=== PATIENT | female | born 1975 ===

== ENCOUNTER 2024-10-20 11:30 | Day surgery (SDC) | payer OTHER ==
[2024-10-12 09:03] VITALS: BP 154/90
[2024-10-12 09:40] LABS: HEMATOCRIT 36.3 % (36.0-45.00); HEMOGLOBIN 11.9 g/dL (12.0-15.00); MEAN CELL VOLUME 83.2 fL (80.00-100.00); MEAN CORPUSCULAR HEMOGLOBIN 27.3 pg (27.00-32.0); MEAN CORPUSCULAR HGB CONC 32.8 g/dl (32.0-36.0); PLATELET COUNT 255 K/uL (150-450); RED BLOOD COUNT 4.36 M/uL (4.00-6.00); RED CELL DISTRIBUTION WIDTH 13.9 % (11.5-14.5)
[2024-10-12 10:13] LABS: URINE APPEARANCE Clear; URINE BILIRRUBIN Negative (NEGATIVE); URINE BLOOD Large; URINE COLOR Yellow; URINE GLUCOSE Negative (NEGATIVE); URINE KETONE Negative (NEGATIVE); URINE LEUKOCYTE Trace; URINE NITRATE Negative; URINE PROTEIN Negative (NEGATIVE); URINE UROBILINOGEN 0.2 E.U./dl
[2024-10-12 10:16] LABS: INR 0.97; PROTHROMBIN TIME 10.6 SECONDS (9.0-11.5)
[2024-10-12 10:17] LABS: URINE BACTERIA 1297.3 uL (0.0-1933); URINE EPITHELIAL CELLS 47.3 uL (0.0-38.8); URINE WBC 49.8 uL (0.0-23.2)
[2024-10-12 10:24] LABS: BILIRUBIN TOTAL 0.41 mg/dL (0.3-1.2); CALCIUM 9.1 mg/dL (8.5-10.1); CREATININE SERUM 0.73 mg/dL (0.55-1.02); GFR 85.09; GLOBULINA 3.2 G/DL (2.4-3.5); POTASSIUM 3.93 mEq/L (3.5-5.1); TOTAL PROTEIN 7.2 gm/dL (6.4-8.2)
[~2024-10-20] VITALS: Ht 157.5 cm; Wt 77.1 kg
[2024-10-20] MEDS ORDERED: POVIDONE-IODINE 118 ML BOTT TOP ONE (17:25)
== END 2024-10-21 01:25 | disposition home or self-care (01) ==
LOC: CIR.AMB 11:30
PROVIDERS: ATTEND Obstetrics & Gynecology
DX: N84.0 Polyp of corpus uteri (principal); N84.1 Polyp of cervix uteri; N72 Inflammatory disease of cervix uteri; N92.1 Excessive and frequent menstruation with irregular cycle; Z88.6 Allergy status to analgesic agent